=== PATIENT | female | born 1980 | race Caucasian/White ===

== ENCOUNTER → 2017-11-10 | Outpatient (CLI) | payer BC | END | disposition home or self-care (01) | LOC: RAD 14:00 | PROC: 3E0R3KZ Introduction of Other Diagnostic Substance into Spinal Canal, Percutaneous Approach (ICD-10-PCS; principal; 2017-11-10) | DX: M25.78 Osteophyte, vertebrae (principal); M48.07 Spinal stenosis, lumbosacral region; M51.27 Other intervertebral disc displacement, lumbosacral region; M46.97 Unspecified inflammatory spondylopathy, lumbosacral region | CPT/HCPCS: 62304; 72132 ==